=== PATIENT | male | born 2000 | race Asian ===

== ENCOUNTER 2024-04-06 15:34 | Emergency (ER) | payer BC, OTHER, SELFPAY ==
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
[2024-04-06 15:49] VITALS: BP 109/65; PULSE 61; RESP 16; TEMP 36.9; O2SAT 100
== END 2024-04-06 16:30 | disposition home or self-care (01) ==
PROVIDERS: Emergency Provider Nurse Practitioner
DX: S63.502A Unspecified sprain of left wrist, initial encounter (principal); S66.912A Strain of unspecified muscle, fascia and tendon at wrist and hand level, left hand, initial encounter; V18.4XXA Pedal cycle driver injured in noncollision transport accident in traffic accident, initial encounter; Y93.55 Activity, bike riding
CPT/HCPCS: 73110; 99203; G0463